=== PATIENT | female | born 1935 | race African-American/Black ===

== ENCOUNTER 2022-04-02 13:39 | Inpatient (IN) | payer OTHER ==
[2022-04-02] MEDS ORDERED: SODIUM CHLORIDE 1,769 ML IV ONE (20:27)
[2022-04-02] MEDS ORDERED: FOLIC ACID INJECTION - 1 MG, THIAMINE HCL 100 MG, MULTIVIT INJECTION ADULT 10 ML in SOD... IVPB ONE (20:27)
[2022-04-02] MEDS ORDERED: HALOPERIDOL LACTATE 5 MG/ML IM ONE (20:28)
[2022-04-02] MEDS ORDERED: HALOPERIDOL LACTATE 5 MG/ML ONE (20:29)
[2022-04-02 22:05] LABS: VENOUS BASE EXCESS -5.9 mmol/L (-2-2); VENOUS O2 SATURATION 15.2 % (70-80); VENOUS PH 7.244 (7.310-7.410)
[2022-04-02 22:16] LABS: BASO % 0.4 % (0-2.0); EOS % 0.4 % (0-4.5); HEMATOCRIT 35.2 % (32.4-45.2); HEMOGLOBIN 11.6 GM/dL (10.7-15.3); LYMPH % 20.6 % (8-40); MCH 28.6 pg (25.7-33.7); MEAN CELL VOLUME 86.7 fl (80-96); MEAN PLT VOLUME 9.6 fl (7.5-11.1); NEUT % 73.6 % (42.8-82.8); PLATELET COUNT 272 10^3/uL (134-434); RBC 4.06 M/mm3 (3.60-5.2); RDW 27.8 % (11.6-15.6); WHITE BLOOD COUNT 10.3 K/mm3 (4.0-10.0)
[2022-04-02 22:27] LABS: INR 1.07 (0.83-1.09); PROTHROMBIN TIME (PATIENT) 12.3 SEC (9.7-13.0)
[2022-04-02 22:30] LABS: ACTIVATED PTT 30.7 SECONDS (25.2-36.5)
[2022-04-02 22:35] LABS: CALCIUM 8.6 mg/dL (8.5-10.1)
[2022-04-02 22:36] LABS: ALBUMIN 2.3 g/dl (3.4-5.0); BLOOD UREA NITROGEN 25.6 mg/dL (7-18)
[2022-04-02 22:39] LABS: CREATININE 2.1 mg/dL (0.55-1.3)
[2022-04-02 22:40] LABS: TOT PROT 7.1 g/dl (6.4-8.2)
[2022-04-02 22:41] LABS: BILIRUBIN,TOTAL 0.7 mg/dL (0.2-1)
[2022-04-02 22:44] LABS: N-TERMINAL BNP 3706.7 pg/ml (5-450)
[2022-04-02 22:50] LABS: LACTIC ACID 4.7 mmol/L (0.4-2.0)
[2022-04-02 23:39] LABS: ANISOCYTOSIS 2+; MACROCYTOSIS 0
[2022-04-03] MEDS ORDERED: ALBUTEROL SO4 HFA INHALER IH PRN (00:59)
[2022-04-03 04:01] LABS: LACTIC ACID 2.3 mmol/L (0.4-2.0)
[2022-04-03] MEDS ORDERED: DEXTROSE 5%-NORMAL SALINE 1,000 ML IV SCH (06:30)
[2022-04-03] MEDS ORDERED: MAG HYDROX/AL HYDROX/SIMETH 30 ML UNIT-DOSE CUP PO PRN (06:48)
[2022-04-03 08:18] VITALS: BMI 16.6
[2022-04-03] MEDS: ISOSORBIDE DINITRATE 10 MG TABLET PO SCH ×2 (08:21→14:16)
[2022-04-03] MEDS: MIRTAZAPINE 15 MG TABLET (FP) PO SCH ×2 (09:49→10:24)
[2022-04-03] MEDS: metoPROLOL SUCCINATE 25 MG TAB.SR.24H (FP) PO SCH ×2 (09:49→10:24)
[2022-04-03] MEDS: PANTOPRAZOLE 20 MG TABLET PO SCH ×2 (09:49→10:23)
[2022-04-03] MEDS: RANOLAZINE E.R. 500 MG TABLET (FP) PO SCH ×3 (09:49→21:25)
[2022-04-03] MEDS: CLOPIDOGREL BISULFATE 75 MG TABLET (FP) PO SCH ×2 (09:49→10:23)
[2022-04-03] MEDS: SODIUM BICARBONATE 650 MG TABLET PO SCH ×3 (09:49→21:25)
[2022-04-03] MEDS: ASPIRIN 81 MG CHEWABLE TABLETS PO SCH ×2 (09:50→10:22)
[2022-04-03] MEDS: HEPARIN NA (PORCINE) 5,000 UNITS/ML 1ML VIAL SQ SCH ×2 (09:51→21:24)
[2022-04-03] MEDS ORDERED: CEFEPIME 1 GM in DEXTROSE 5%-WATER 100 ML IVPB SCH (10:00)
[2022-04-03] MEDS ORDERED: ERGOCALCIFEROL (VIT D2) 50,000 UNIT (1.25 MG) CAPSULE PO SCH (10:00)
[2022-04-03] MEDS: BUDESONIDE/FORMETEROL FUMARATE 80/4.5 mcg INHALER IH SCH ×2 (10:11→21:25)
[2022-04-03] MEDS: VERAPAMIL HCL 240 MG E.R. TABLET PO SCH (10:21)
[2022-04-03] MEDS ORDERED: LORazepam 2 MG/ML SDV VIAL IVPUSH PRN (11:48)
[2022-04-03] MEDS: DEXTROSE 5%-NORMAL SALINE 1,000 ML IV SCH (14:17)
[2022-04-03] MEDS: METOPROLOL TARTRATE 5 MG/5 ML VIAL IVPB PRN ×2 (14:18→21:55)
[2022-04-03] MEDS: cloNIDine-TTS 0.1 MG/24 HRS PATCH.TDWK TD SCH (14:21)
[2022-04-03] MEDS: MONTELUKAST NA 10 MG TABLET PO SCH (21:25)
[2022-04-03] MEDS: ATORVASTATIN CA 40 MG TABLET (FP) PO SCH (21:25)
[2022-04-04] MEDS: ISOSORBIDE DINITRATE 10 MG TABLET PO SCH ×2 (08:40→13:40)
[2022-04-04] MEDS: DEXTROSE 5%-NORMAL SALINE 1,000 ML IV SCH ×2 (08:46→13:39)
[2022-04-04] MEDS: CEFEPIME 1 GM in DEXTROSE 5%-WATER 100 ML IVPB SCH (09:46)
[2022-04-04] MEDS: HEPARIN NA (PORCINE) 5,000 UNITS/ML 1ML VIAL SQ SCH ×2 (09:47→22:12)
[2022-04-04] MEDS: BUDESONIDE/FORMETEROL FUMARATE 80/4.5 mcg INHALER IH SCH ×2 (09:52→22:15)
[2022-04-04] MEDS: ASPIRIN 81 MG CHEWABLE TABLETS PO SCH (10:02)
[2022-04-04] MEDS: VERAPAMIL HCL 240 MG E.R. TABLET PO SCH (10:02)
[2022-04-04] MEDS: SODIUM BICARBONATE 650 MG TABLET PO SCH ×2 (10:03→22:14)
[2022-04-04] MEDS: PANTOPRAZOLE 20 MG TABLET PO SCH (10:03)
[2022-04-04] MEDS: metoPROLOL SUCCINATE 25 MG TAB.SR.24H (FP) PO SCH (10:03)
[2022-04-04] MEDS: CLOPIDOGREL BISULFATE 75 MG TABLET (FP) PO SCH (10:03)
[2022-04-04] MEDS: MIRTAZAPINE 15 MG TABLET (FP) PO SCH (10:03)
[2022-04-04] MEDS: RANOLAZINE E.R. 500 MG TABLET (FP) PO SCH ×2 (10:03→22:14)
[2022-04-04 12:22] LABS: BASO % 0.4 % (0-2.0); EOS % 0.3 % (0-4.5); HEMATOCRIT 34.2 % (32.4-45.2); HEMOGLOBIN 11.7 GM/dL (10.7-15.3); LYMPH % 23.1 % (8-40); MCH 29.5 pg (25.7-33.7); MCHC 34.3 g/dl (32.0-36.0); MEAN CELL VOLUME 86.1 fl (80-96); MEAN PLT VOLUME 9.4 fl (7.5-11.1); MONO % 5.1 % (3.8-10.2); NEUT % 71.1 % (42.8-82.8); PLATELET COUNT 281 10^3/uL (134-434); RBC 3.98 M/mm3 (3.60-5.2); RDW 27.2 % (11.6-15.6)
[2022-04-04 12:44] LABS: BLOOD UREA NITROGEN 19.6 mg/dL (7-18); CALCIUM 8.3 mg/dL (8.5-10.1); MAGNESIUM 1.7 mg/dL (1.8-2.4)
[2022-04-04 12:48] LABS: PHOSPHOROUS 2.8 mg/dL (2.5-4.9)
[2022-04-04] MEDS: METOPROLOL TARTRATE 5 MG/5 ML VIAL IVPB PRN ×2 (15:26→23:59)
[2022-04-04] MEDS: ATORVASTATIN CA 40 MG TABLET (FP) PO SCH (22:14)
[2022-04-04] MEDS: MONTELUKAST NA 10 MG TABLET PO SCH (22:14)
[2022-04-05] MEDS: DEXTROSE 5%-NORMAL SALINE 1,000 ML IV SCH ×2 (06:41→14:31)
[2022-04-05] MEDS: METOPROLOL TARTRATE 5 MG/5 ML VIAL IVPB PRN ×2 (06:46→16:38)
[2022-04-05] MEDS: ISOSORBIDE DINITRATE 10 MG TABLET PO SCH ×2 (08:57→14:30)
[2022-04-05] MEDS: CEFEPIME 1 GM in DEXTROSE 5%-WATER 100 ML IVPB SCH (09:32)
[2022-04-05] MEDS: HEPARIN NA (PORCINE) 5,000 UNITS/ML 1ML VIAL SQ SCH ×2 (09:32→23:18)
[2022-04-05] MEDS: CLOPIDOGREL BISULFATE 75 MG TABLET (FP) PO SCH (09:33)
[2022-04-05] MEDS: RANOLAZINE E.R. 500 MG TABLET (FP) PO SCH ×2 (09:33→23:22)
[2022-04-05] MEDS: PANTOPRAZOLE 20 MG TABLET PO SCH (09:33)
[2022-04-05] MEDS: MIRTAZAPINE 15 MG TABLET (FP) PO SCH (09:34)
[2022-04-05] MEDS: SODIUM BICARBONATE 650 MG TABLET PO SCH ×2 (09:35→23:22)
[2022-04-05] MEDS: metoPROLOL SUCCINATE 25 MG TAB.SR.24H (FP) PO SCH (09:35)
[2022-04-05] MEDS: BUDESONIDE/FORMETEROL FUMARATE 80/4.5 mcg INHALER IH SCH ×2 (09:35→23:22)
[2022-04-05] MEDS: ASPIRIN 81 MG CHEWABLE TABLETS PO SCH (10:32)
[2022-04-05] MEDS: VERAPAMIL HCL 240 MG E.R. TABLET PO SCH (10:32)
[2022-04-05] MEDS: MONTELUKAST NA 10 MG TABLET PO SCH (23:22)
[2022-04-05] MEDS: ATORVASTATIN CA 40 MG TABLET (FP) PO SCH (23:22)
[2022-04-06] MEDS: DEXTROSE 5%-NORMAL SALINE 1,000 ML IV SCH ×3 (01:10→17:56)
[2022-04-06] MEDS: HEPARIN NA (PORCINE) 5,000 UNITS/ML 1ML VIAL SQ SCH ×2 (09:56→21:27)
[2022-04-06] MEDS: CEFEPIME 1 GM in DEXTROSE 5%-WATER 100 ML IVPB SCH (09:56)
[2022-04-06] MEDS: VERAPAMIL HCL 240 MG E.R. TABLET PO SCH (09:57)
[2022-04-06] MEDS: ISOSORBIDE DINITRATE 10 MG TABLET PO SCH ×2 (09:57→13:53)
[2022-04-06] MEDS: ASPIRIN 81 MG CHEWABLE TABLETS PO SCH (09:57)
[2022-04-06] MEDS: SODIUM BICARBONATE 650 MG TABLET PO SCH ×2 (09:58→21:24)
[2022-04-06] MEDS: MIRTAZAPINE 15 MG TABLET (FP) PO SCH (09:58)
[2022-04-06] MEDS: CLOPIDOGREL BISULFATE 75 MG TABLET (FP) PO SCH (09:58)
[2022-04-06] MEDS: metoPROLOL SUCCINATE 25 MG TAB.SR.24H (FP) PO SCH (09:58)
[2022-04-06] MEDS: BUDESONIDE/FORMETEROL FUMARATE 80/4.5 mcg INHALER IH SCH ×2 (09:58→21:25)
[2022-04-06] MEDS: RANOLAZINE E.R. 500 MG TABLET (FP) PO SCH ×2 (09:58→21:24)
[2022-04-06] MEDS: PANTOPRAZOLE 20 MG TABLET PO SCH (09:58)
[2022-04-06 11:35] LABS: BASO % 1.4 % (0-2.0); EOS % 0.1 % (0-4.5); HEMATOCRIT 34.4 % (32.4-45.2); LYMPH % 19.7 % (8-40); MCH 27.6 pg (25.7-33.7); MEAN CELL VOLUME 86.1 fl (80-96); MEAN PLT VOLUME 9.5 fl (7.5-11.1); MONO % 5.5 % (3.8-10.2); NEUT % 73.3 % (42.8-82.8); PLATELET COUNT 243 10^3/uL (134-434); RBC 3.99 M/mm3 (3.60-5.2); RDW 27.4 % (11.6-15.6); WHITE BLOOD COUNT 6.9 K/mm3 (4.0-10.0)
[2022-04-06 12:01] LABS: CHLORIDE 120 mmol/L (98-107); SODIUM 151 mmol/L (136-145)
[2022-04-06 12:03] LABS: CALCIUM 7.6 mg/dL (8.5-10.1)
[2022-04-06 12:05] LABS: BLOOD UREA NITROGEN 19.3 mg/dL (7-18); CO2 23 mmol/L (21-32); GLUCOSE,RANDOM 143 mg/dL (74-106)
[2022-04-06 12:08] LABS: SGOT/AST 20 U/L (15-37); SGPT/ALT 43 U/L (13-61)
[2022-04-06 12:09] LABS: BILIRUBIN,TOTAL 0.5 mg/dL (0.2-1); TOT PROT 6.3 g/dl (6.4-8.2)
[2022-04-06 12:10] LABS: ALK PHOS 92 U/L (45-117); ANION GAP 9 MMOL/L (8-16)
[2022-04-06 12:40] LABS: ANISOCYTOSIS 2+; MACROCYTOSIS 0; OVALOCYTE 2+; TARGET CELLS 1+; TEAR DROP CELLS 1+
[2022-04-06] MEDS: KCL 10 MEQ IVPB 10 MEQ/100 ML INFUS.BAG IVPB SCH ×3 (12:53→16:11)
[2022-04-06] MEDS: MONTELUKAST NA 10 MG TABLET PO SCH (21:24)
[2022-04-06] MEDS: ATORVASTATIN CA 40 MG TABLET (FP) PO SCH (21:24)
[2022-04-07] MEDS: VERAPAMIL HCL 240 MG E.R. TABLET PO SCH (09:30)
[2022-04-07] MEDS: ISOSORBIDE DINITRATE 10 MG TABLET PO SCH ×2 (09:30→12:52)
[2022-04-07] MEDS: ASPIRIN 81 MG CHEWABLE TABLETS PO SCH (09:30)
[2022-04-07] MEDS: CEFEPIME 1 GM in DEXTROSE 5%-WATER 100 ML IVPB SCH (09:30)
[2022-04-07] MEDS: CLOPIDOGREL BISULFATE 75 MG TABLET (FP) PO SCH (09:31)
[2022-04-07] MEDS: SODIUM BICARBONATE 650 MG TABLET PO SCH ×2 (09:31→22:04)
[2022-04-07] MEDS: RANOLAZINE E.R. 500 MG TABLET (FP) PO SCH ×2 (09:31→22:03)
[2022-04-07] MEDS: MIRTAZAPINE 15 MG TABLET (FP) PO SCH (09:31)
[2022-04-07] MEDS: PANTOPRAZOLE 20 MG TABLET PO SCH (09:31)
[2022-04-07] MEDS: metoPROLOL SUCCINATE 25 MG TAB.SR.24H (FP) PO SCH (09:32)
[2022-04-07] MEDS: BUDESONIDE/FORMETEROL FUMARATE 80/4.5 mcg INHALER IH SCH ×2 (09:32→22:04)
[2022-04-07] MEDS: HEPARIN NA (PORCINE) 5,000 UNITS/ML 1ML VIAL SQ SCH ×2 (09:40→22:02)
[2022-04-07] MEDS ORDERED: FENTANYL PATCH WASTE TD PRN (12:19)
[2022-04-07] MEDS: fentaNYL 12mcg/hr PATCH.TD72 TD SCH (12:28)
[2022-04-07] MEDS: SCOPOLAMINE HYDROBROMIDE 1 PATCH PATCH.TD72 TD SCH (12:30)
[2022-04-07] MEDS: DEXTROSE 5%-NORMAL SALINE 1,000 ML IV SCH (12:30)
[2022-04-07] MEDS: ATORVASTATIN CA 40 MG TABLET (FP) PO SCH (22:03)
[2022-04-07] MEDS: MONTELUKAST NA 10 MG TABLET PO SCH (22:04)
[2022-04-08] MEDS: ISOSORBIDE DINITRATE 10 MG TABLET PO SCH ×2 (08:07→12:41)
[2022-04-08] MEDS: ASPIRIN 81 MG CHEWABLE TABLETS PO SCH (09:30)
[2022-04-08] MEDS: VERAPAMIL HCL 240 MG E.R. TABLET PO SCH (09:30)
[2022-04-08] MEDS: CEFEPIME 1 GM in DEXTROSE 5%-WATER 100 ML IVPB SCH (09:31)
[2022-04-08] MEDS: CLOPIDOGREL BISULFATE 75 MG TABLET (FP) PO SCH (09:32)
[2022-04-08] MEDS: RANOLAZINE E.R. 500 MG TABLET (FP) PO SCH ×2 (09:33→22:10)
[2022-04-08] MEDS: SODIUM BICARBONATE 650 MG TABLET PO SCH ×2 (09:33→22:11)
[2022-04-08] MEDS: MIRTAZAPINE 15 MG TABLET (FP) PO SCH (09:33)
[2022-04-08] MEDS: PANTOPRAZOLE 20 MG TABLET PO SCH (09:33)
[2022-04-08] MEDS: BUDESONIDE/FORMETEROL FUMARATE 80/4.5 mcg INHALER IH SCH ×2 (09:33→22:12)
[2022-04-08] MEDS: metoPROLOL SUCCINATE 25 MG TAB.SR.24H (FP) PO SCH (09:34)
[2022-04-08] MEDS: HEPARIN NA (PORCINE) 5,000 UNITS/ML 1ML VIAL SQ SCH ×2 (09:35→22:10)
[2022-04-08] MEDS ORDERED: ERGOCALCIFEROL (VIT D2) 50,000 UNIT (1.25 MG) CAPSULE PO SCH (10:00)
[2022-04-08] MEDS: DEXTROSE 5%-NORMAL SALINE 1,000 ML IV SCH (12:21)
[2022-04-08] MEDS: MONTELUKAST NA 10 MG TABLET PO SCH (22:10)
[2022-04-08] MEDS: ATORVASTATIN CA 40 MG TABLET (FP) PO SCH (22:10)
[2022-04-09] MEDS: ISOSORBIDE DINITRATE 10 MG TABLET PO SCH ×2 (07:44→12:57)
[2022-04-09] MEDS: ASPIRIN 81 MG CHEWABLE TABLETS PO SCH (09:12)
[2022-04-09] MEDS: VERAPAMIL HCL 240 MG E.R. TABLET PO SCH (09:13)
[2022-04-09] MEDS: SODIUM BICARBONATE 650 MG TABLET PO SCH (09:15)
[2022-04-09] MEDS: CLOPIDOGREL BISULFATE 75 MG TABLET (FP) PO SCH (09:15)
[2022-04-09] MEDS: MIRTAZAPINE 15 MG TABLET (FP) PO SCH (09:15)
[2022-04-09] MEDS: RANOLAZINE E.R. 500 MG TABLET (FP) PO SCH (09:15)
[2022-04-09] MEDS: PANTOPRAZOLE 20 MG TABLET PO SCH (09:15)
[2022-04-09] MEDS: BUDESONIDE/FORMETEROL FUMARATE 80/4.5 mcg INHALER IH SCH ×2 (09:16→22:05)
[2022-04-09] MEDS: metoPROLOL SUCCINATE 25 MG TAB.SR.24H (FP) PO SCH (09:16)
[2022-04-09] MEDS: HEPARIN NA (PORCINE) 5,000 UNITS/ML 1ML VIAL SQ SCH ×2 (09:55→22:09)
[2022-04-09] MEDS: CEFEPIME 1 GM in DEXTROSE 5%-WATER 100 ML IVPB SCH (11:07)
[2022-04-10] MEDS: BUDESONIDE/FORMETEROL FUMARATE 80/4.5 mcg INHALER IH SCH ×2 (09:20→21:26)
[2022-04-10] MEDS: SCOPOLAMINE HYDROBROMIDE 1 PATCH PATCH.TD72 TD SCH (11:43)
[2022-04-10] MEDS: fentaNYL 12mcg/hr PATCH.TD72 TD SCH (11:43)
[2022-04-10] MEDS: cloNIDine-TTS 0.1 MG/24 HRS PATCH.TDWK TD SCH (11:45)
[2022-04-11] MEDS: BUDESONIDE/FORMETEROL FUMARATE 80/4.5 mcg INHALER IH SCH ×2 (10:20→21:08)
[2022-04-12] MEDS: BUDESONIDE/FORMETEROL FUMARATE 80/4.5 mcg INHALER IH SCH ×2 (09:23→22:00)
[2022-04-13] MEDS: BUDESONIDE/FORMETEROL FUMARATE 80/4.5 mcg INHALER IH SCH ×2 (10:27→21:38)
[2022-04-13] MEDS: SCOPOLAMINE HYDROBROMIDE 1 PATCH PATCH.TD72 TD SCH (12:54)
[2022-04-13] MEDS: fentaNYL 12mcg/hr PATCH.TD72 TD SCH (12:54)
[2022-04-14] MEDS: BUDESONIDE/FORMETEROL FUMARATE 80/4.5 mcg INHALER IH SCH ×2 (09:34→21:09)
[2022-04-15] MEDS: BUDESONIDE/FORMETEROL FUMARATE 80/4.5 mcg INHALER IH SCH (09:04)
[2022-04-15 09:26] VITALS: BP 109/68; PULSE 123; RESP 18; TEMP 97.3
[2022-04-15] MEDS ORDERED: DEXTROSE 5%-0.45% SALINE 1,000 ML IV SCH (11:15)
== END 2022-04-15 16:20 | disposition expired | DRG 884 ==
LOC: JER 13:39 → JERBED 20:28 → J6S 04-03 04:47 → J4S 04-09 20:35
PROVIDERS: ADMIT Hospitalist; ATTEND Internal Medicine
DX: F03.90 Unspecified dementia, unspecified severity, without behavioral disturbance, psychotic disturbance, mood disturbance, and anxiety (principal); E43 Unspecified severe protein-calorie malnutrition; R78.81 Bacteremia; R64 Cachexia; Z68.1 Body mass index [BMI] 19.9 or less, adult; E87.2 Acidosis; N17.9 Acute kidney failure, unspecified; I13.0 Hypertensive heart and chronic kidney disease with heart failure and stage 1 through stage 4 chronic kidney disease, or unspecified chronic kidney disease; R00.0 Tachycardia, unspecified; E11.22 Type 2 diabetes mellitus with diabetic chronic kidney disease; N18.9 Chronic kidney disease, unspecified; I50.9 Heart failure, unspecified; E86.0 Dehydration; R62.7 Adult failure to thrive; I25.119 Atherosclerotic heart disease of native coronary artery with unspecified angina pectoris; E78.5 Hyperlipidemia, unspecified; K21.9 Gastro-esophageal reflux disease without esophagitis; E55.9 Vitamin D deficiency, unspecified; R09.02 Hypoxemia; I46.9 Cardiac arrest, cause unspecified; F32.9 Major depressive disorder, single episode, unspecified; Z85.09 Personal history of malignant neoplasm of other digestive organs; Z86.73 Personal history of transient ischemic attack (TIA), and cerebral infarction without residual deficits; Z66 Do not resuscitate
CPT/HCPCS: 0241U-QW; 36415; 71045-TC-FY; 80048; 80053; 82553; 82803; 82962; 83605; 83735; 83880; 84100; 84484; 85025; 85610; 85730; 87040; 93005; 93010; 99291; 99292; J1644